=== PATIENT | male | born 1980 | race Caucasian/White ===

== ENCOUNTER 2020-01-30 14:30 | Emergency (ER) | payer SELFPAY | END 2020-01-30 15:25 | disposition home or self-care (01) | LOC: NAV ERS 14:30 | DX: F41.9 Anxiety disorder, unspecified (principal); I10 Essential (primary) hypertension; R11.2 Nausea with vomiting, unspecified; F17.210 Nicotine dependence, cigarettes, uncomplicated | CPT/HCPCS: 99284 ==

== ENCOUNTER 2020-02-25 18:19 | Emergency (ER) | payer SELFPAY ==
[2020-02-25] MEDS ORDERED: Bacitracin 1 PK ONE (19:22)
[2020-02-25] MEDS ORDERED: TETANUS, DIPHTHERIA TOX,ADULT (TDVAX) 0.5 ML VIAL IM ONE (19:22)
[2020-02-25] MEDS ORDERED: Lidocaine 1% (PF) 30 ML VIAL ONE (19:22)
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
== END 2020-02-25 20:57 ==
LOC: NAV ERS 18:19
DX: S01.82XA Laceration with foreign body of other part of head, initial encounter (principal); S11.92XA Laceration with foreign body of unspecified part of neck, initial encounter; S01.511A Laceration without foreign body of lip, initial encounter; S60.511A Abrasion of right hand, initial encounter; I10 Essential (primary) hypertension; F17.210 Nicotine dependence, cigarettes, uncomplicated; Z79.899 Other long term (current) drug therapy; V47.5XXA Car driver injured in collision with fixed or stationary object in traffic accident, initial encounter
CPT/HCPCS: 12014; 36415; 70450; 70486; 72125; 90471; 90714; J2001